=== PATIENT | female | born 1955 | race Caucasian/White ===

== ENCOUNTER 2019-06-12 13:58 | Emergency (ER) | payer MEDICAID ==
[~2019-06-12] VITALS: Ht 165.1 cm; Wt 72.6 kg
--- NOTE | 2019-06-12 14:11 | NUR ---
Patient to ER bed 07 to gown for evaluation. Side rails up.
--- NOTE | 2019-06-12 14:15 | NUR ---
ER at bedside examining patient.
[2019-06-12] MEDS ORDERED: LIDOCAINE 1% 10 MG/ML, 20 ML MDV INJ ONE (14:30)
[2019-06-12] MEDS ORDERED: BACITRACIN 1 GM OINT TP ONE (15:10)
--- NOTE | 2019-06-12 15:13 | NUR ---
Patient transported to radiology via , accompanied by radiotelephone operator.
--- NOTE | 2019-06-12 15:20 | NUR ---
Returned from radiology, back to [facility].
--- NOTE | 2019-06-12 15:30 | NUR ---
Dr. Dodge at the bedside stitching the pt's right elbow.
--- NOTE | 2019-06-12 15:35 | NUR ---
placed Bacit[employer] over the right elbow and covered w/ occlusive dressing. Pt tolerated well.
--- NOTE | 2019-06-12 16:00 | NUR ---
Patient given written and verbal discharge instructions and verbalizes understanding. ER MD discussed with patient the results and treatment provided. Patient in stable condition. ID arm band removed. Patient educated on pain management and to follow up with PMD. Pain Scale 0/10. Opportunity for questions provided and answered. Medication side effect fact sheet provided.
== END 2019-06-12 16:00 | disposition home or self-care (01) ==
LOC: SED 13:58
DX: S51.011A Laceration without foreign body of right elbow, initial encounter (principal); S00.83XA Contusion of other part of head, initial encounter; W22.8XXA Striking against or struck by other objects, initial encounter; Y93.89 Activity, other specified; Y92.89 Other specified places as the place of occurrence of the external cause; Y99.8 Other external cause status
CPT/HCPCS: 12001; 70450; 73070; 99284; J2001